=== PATIENT | female | born 1950 | race Caucasian/White ===

== ENCOUNTER 2018-05-25 10:42 | Emergency (ER) | payer BC, MEDICARE ==
[2018-05-25 11:13] VITALS: BP 156/81
--- NOTE | 2018-05-25 11:37 | UC ---
Dental HPI - HPI Summary HPI Summary: 67-year-old female presents with complaints of left lower dental pain and swelling since yesterday. States for 5 years ago she lost a filling to her left first molar which was never repaired. Denies fever, chills, trismus, dysphagia, or difficulty breathing. - History of Current Complaint Chief Complaint: UCDentalProblem Stated Complaint: DENTAL COMPLAINT Time Seen by Provider: 05/25/18 11:19 Hx Obtained From: Patient Pain Intensity: 9 - Allergies/Home Medications Allergies/Adverse Reactions: Allergies Allergy/AdvReac Type Severity Reaction Status Date / Time Penicillins Allergy Unknown Verified 05/25/18 11:08 Reaction Details Sulfa (Sulfonamide Allergy Unknown Verified 05/25/18 11:08 Antibiotics) Reaction Details Home Medications: Home Medications Aspirin EC TAB* [Ecotrin EC TAB*] 650 mg PO Q6H PRN 05/25/18 [History Confirmed 05/25/18] Atorvastatin* [Lipitor*] 10 mg PO DAILY 05/25/18 [History Confirmed 05/25/18] Budesonide/Formote 160/4.5(NF) [Symbicort 160/4.5 (NF)] 2 puff INH BID PRN 05/25 [History Confirmed 05/25/18] Levalbuterol HFA INHALER* [Xopenex Hfa Inhaler*] 1 puff INH Q4H PRN 05/25/18 [ History Confirmed 05/25/18] Levothyroxine TAB* [Synthroid TAB*] 50 mcg PO DAILY 05/25/18 [History Confirmed 05/25/18] Montelukast Sodium TAB* [Singulair TAB*] 10 mg PO DAILY 05/25/18 [History Confirmed 05/25/18] PMH/Surg Hx/FS Hx/Imm Hx Endocrine History: Dyslipidemia Respiratory History: COPD - Surgical History Surgical History: None - Family History Known Family History: Positive: Non-Contributory - Social History Occupation: Retired Lives: With Family Alcohol Use: Occasionally Substance Use Type: None Smoking Status (MU): Never Smoked Tobacco Review of Systems All Other Systems Reviewed And Are Negative: Yes Constitutional: Negative: Fever, Chills Eyes: Negative: Drainage, Eye Redness ENT: Positive: Dental Pain. Negative: Sore Throat, Ear Ache, Nasal Discharge, Sinus Congestion, Sinus Pain/Tenderness Respiratory: Negative: Shortness Of Breath, Cough Cardiovascular: Positive: Negative Gastrointestinal: Positive: Negative Genitourinary: Positive: Negative Musculoskeletal: Positive: Negative Neurological: Positive: Negative Is Patient Immunocompromised?: No Physical Exam - Summary Physical Exam Summary: GENERAL APPEARANCE: Well developed, well nourished, alert and cooperative, and appears to be in no acute distress. HEAD: Mild left lower facial swelling. EYES: Conjunctiva clear. No drainage. Vision is grossly intact. EARS: External auditory canals and tympanic membranes clear, hearing grossly intact. NOSE: No nasal discharge. THROAT: Pharynx normal. No tonsilar inflammation, swelling, exudate, or lesions. Uvula midline. Overall poor dentition with multiple dental caries, a previously repaired dental benita to the left lower first molar with missing filling, mild erythematous gingiva without induration, fluctuance, or drainage. NECK: Neck supple, non-tender without lymphadenopathy. CARDIAC: Normal S1 and S2. No S3, S4 or murmurs. Rhythm is regular. There is no peripheral edema, cyanosis or pallor. Extremities are warm and well perfused. Capillary refill is less than 2 seconds. Peripheral pulses intact. LUNGS: Clear to auscultation without rales, rhonchi, wheezing or diminished breath sounds. ABDOMEN: Positive bowel sounds. Soft, nondistended, nontender. No guarding or rebound. No masses or hepatosplenomegally. MUSKULOSKELETAL: ROM intact to all extremities. No joint erythema or tenderness. Normal muscular development. Normal gait. SKIN: Skin normal color, texture and turgor with no lesions or eruptions. Triage Information Reviewed: Yes Vital Signs: Initial Vital Signs Temp 97.9 F 05/25/18 11:06 Pulse 89 05/25/18 11:06 Resp 16 05/25/18 11:06 BP 156/81 05/25/18 11:06 Pulse Ox 99 05/25/18 11:06 Vital Signs Reviewed: Yes Dental Complaint Course/Dx - Course Course Of Treatment: 67-year-old female presents with complaints of left lower dental pain and swelling since yesterday. States for 5 years ago she lost a filling to her left first molar which was never repaired. Denies fever, chills, trismus, dysphagia, or difficulty breathing. Afebrile. Vital signs stable. Exam reveals an adult female in no acute distress with mild left lower facial swelling, overall poor dentition with multiple dental caries, a previously repaired dental benita to the left lower first molar with missing filling, mild erythematous gingiva without induration, fluctuance, or drainage, and otherwise unremarkable exam. Will start her on clindamycin 300 mg 3 times a day 10 days for possible dental infection. She is to call on Sunday and schedule appointment with a dentist at the earliest convenience. Anticipatory guidance and warning symptoms were reviewed with the patient. Verbalizes understanding and agrees with plan of care. - Differential Dx/Diagnosis Differential Diagnosis/Dx: Dental Abscess, Dental Caries, Fractured Tooth, Odontogenic Pain, Peridontic Disease Provider Diagnosis: Pain, dental Discharge - Sign-Out/Discharge Documenting (check all that apply): Patient Departure All imaging exams completed and their final reports reviewed: No Studies - Discharge Plan Condition: Stable Disposition: HOME Prescriptions: Clindamycin HCl 300 mg PO TID #30 capsule Naproxen [Naproxen 500 mg tab] 500 mg PO Q12HR PRN #30 tablet PRN Reason: Pain Patient Education Materials: Toothache (ED) Referrals: Ariana Sahu MD [Primary Care Provider] - Additional Instructions: We will start you on an antibiotic for a possible dental infection. Take clindamycin 300 mg 1 capsule three times a day for 10 days. Be sure to complete the entire course even if feeling better. Take naproxen 1 tab with food every 12 hours as needed for pain. Be sure to rinse your mouth with a warm salt water solution after every time you eat and at bedtime to remove any debris. Call your dentist on Sunday to schedule an appointment as soon as possible. Seek immediate medical attention in the emergency room if you develop severe pain not managed with pain medication, you are unable to swallow, develop drooling, have difficulty breathing, are unable to open or close your mouth, or have any worsening of symptoms. - Billing Disposition and Condition Condition: STABLE Disposition: Home - Attestation Statements Provider Attestation: Per institutional requirements, I have reviewed the chart, however, I was not consulted specifically or made aware of this patient by the midlevel provider. I did not personally evaluate, interact with , or disposition this patient.
== END 2018-05-25 11:46 | disposition home or self-care (01) ==
LOC: UCCORT 10:42
DX: K08.89 Other specified disorders of teeth and supporting structures (principal); E78.5 Hyperlipidemia, unspecified; J44.9 Chronic obstructive pulmonary disease, unspecified; K02.9 Dental caries, unspecified; Z88.0 Allergy status to penicillin; Z88.2 Allergy status to sulfonamides; Z79.82 Long term (current) use of aspirin; Z79.899 Other long term (current) drug therapy
CPT/HCPCS: 99202; G0463